=== PATIENT | male | born 1955 | race Caucasian/White ===

== ENCOUNTER 2023-12-11 21:18 | Observation (INO) | payer BC ==
[2023-12-11 23:53] LABS: Troponin I Less than 0.010 ng/mL (< 0.028)
[2023-12-11] MEDS ORDERED: Ondansetron PF 4 MG/2 ML Vial IVP PRN (23:57)
[2023-12-11] MEDS ORDERED: Acetaminophen 325 MG TAB PO PRN (23:57)
[2023-12-12] MEDS ORDERED: Albuterol 200 PUFF (6.7GM INHALER) INH PRN ×2 (00:42→06:11)
[2023-12-12 04:03] LABS: #Basophils Less than 0.03 10x3/uL (0.0-0.2); #Eosinphils Less than 0.03 10x3/uL (0.0-0.7); %Basophils 0.2 % (0.0-1.0); %Lymphocytes 13.8 % (21.0-51.0); %Monocytes 4.2 % (0.0-10.0); %Neutrophils 81.3 % (42.0-75.0); Hematocrit 39.8 % (42.0-52.0); Hemoglobin 13.2 g/dL (14.0-18.0); Mean Corpuscular HGB CONC 33.2 g/dL (32.0-36.0); Mean Corpuscular Hemoglobin 32.1 pg (27.0-31.0); Mean Corpuscular Volume 96.8 fL (78.0-98.0); Mean Platelet Volume 9.3 fL (7.4-10.4); Platelet Count 249 10x3/uL (130-400); Red Blood Cell (RBC) Count 4.11 mill/uL (4.70-6.10)
[2023-12-12 04:33] LABS: ALT (SGPT) 11 U/L (8-55); AST (SGOT) 15 U/L (5-34); Albumin 3.7 g/dL (3.4-4.8); Alkaline Phosphatase 50 U/L (40-110); Anion Gap 14 mmol/L (10-20); BUN (Urea Nitrogen) 16 mg/dL (8.4-25.7); Bilirubin, Total 0.2 mg/dL (0.2-1.2); Calc. Creatinine Clearance 0 mL/min (70-130); Calcium 9.1 mg/dL (7.8-10.44); Carbon Dioxide 24 mmol/L (23-31); Chloride 105 mmol/L (98-107); Estimated GFR 87; Globulin 2.7 g/dL (2.4-3.5); Glucose 193 mg/dL (80-115); Potassium 4.4 mmol/L (3.5-5.1); Protein, Total 6.4 g/dL (5.8-8.1); Sodium 139 mmol/L (136-145)
[2023-12-12 05:49] VITALS: BMI 32.8
[2023-12-12] MEDS: Enoxaparin 40 MG (0.4 mL) SYRINGE SC SCH (08:19)
[2023-12-12] MEDS: Oseltamivir 75 MG CAP PO SCH (08:20)
[2023-12-12 08:43] VITALS: BP 114/71; TEMP 97.8
== END 2023-12-12 12:28 | disposition home or self-care (01) ==
LOC: ERS 21:18 → ERHOLD 22:45 → 2SW 22:49
PROVIDERS: ADMIT Emergency Medicine; ATTEND Emergency Medicine
DX: J96.21 Acute and chronic respiratory failure with hypoxia (principal); R07.89 Other chest pain; J84.9 Interstitial pulmonary disease, unspecified; J11.1 Influenza due to unidentified influenza virus with other respiratory manifestations; Z99.81 Dependence on supplemental oxygen; Z79.899 Other long term (current) drug therapy
CPT/HCPCS: 36415; 71045; 80053; 84145; 84484; 85025; 96372; G0378; J1650